=== PATIENT | female | born 1965 | race Two or more races ===

== ENCOUNTER 2024-07-12 09:21 | Emergency (ER) | payer MEDICAID, OTHER ==
[~2024-07-12] VITALS: Ht 157.5 cm; Wt 78.4 kg
[2024-07-12 11:20] LABS: Urine Bacteria FEW /hpf (None Seen); Urine Blood Negative /uL (Negative); Urine Budding Yeast OCCASIONAL /hpf (None Seen); Urine Clarity Turbid (Clear); Urine Color Yellow (Yellow); Urine Hyaline Cast MANY /lpf (0 - 2); Urine Mucus FEW (None Seen); Urine Protein, UAD TRACE (Negative); Urine Specific Gravity 1.017 (1.001-1.035); Urine Urobilinogen Normal (Negative); Urine WBC 2 /hpf (0 - 5)
[2024-07-12 12:25] VITALS: BP 144/88; PULSE 77; RESP 15; TEMP 97.7; O2SAT 97
== END 2024-07-12 12:32 | disposition home or self-care (01) ==
LOC: ER 09:25
DX: R19.7 Diarrhea, unspecified (principal); R10.84 Generalized abdominal pain; E11.9 Type 2 diabetes mellitus without complications; I10 Essential (primary) hypertension; E78.5 Hyperlipidemia, unspecified
CPT/HCPCS: 81001

== ENCOUNTER 2025-08-07 17:05 | Inpatient (IN) | payer MEDICAID ==
[~2025-08-07] VITALS: Ht 157.5 cm; Wt 71.0 kg
[2025-08-07 17:32] LABS: Hematocrit 42.8 % (36.0-46.0); Hemoglobin 14.5 g/dL (12.2-16.2); Mean Corpuscular Hemoglobin 29.5 pg (28.0-32.0); Mean Corpuscular Volume 86.9 fL (80.0-100.0); Nucleated Red Blood Cells % 0.0 %
--- NOTE | 2025-08-07 17:39 | ED.PDOC ---
GI ASSESSMENT HPI Comments This is a 59 year old female presenting to the ED with chief complaint of lower abdominal pain. Patient reports that she has been experiencing intermittent bilateral lower quadrant and suprapubic abdominal pain for the past week. Patient relays that when her pain comes on, it becomes difficult for her to walk due to the pain. Patient denies any N/V/D, fever, chills, dysuria, hematuria, or flank pain. Chief Complaint: Abdominal Pain Time Seen by MD: 17:38 Primary Care Provider: CHARISSA Cruz Notes: Nurses Notes, Medications, Allergies Allergies: Coded Allergies: NO KNOWN ALLERGIES (Unverified , 07/12/24) Information Source: Patient Mode of Arrival: Ambulatory Timing: Weeks Duration: Since onset Prehospital treatment: None Quality: Sharp Vomitus: None Stool: Normal Severity: Moderate Recent: None Recent Hx of: None Pain Location: Suprapubic Modifying Factors: Nothing Associated sign and symptoms: Abdominal Pain Past Medical History PAST MEDICAL HISTORY: DM, High Lipids, HTN Surgical History: Denies all surgeries 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 Family History Family History: Reviewed,noncontributory to illness, Unknown Social History Smoker: Non-Smoker Alcohol: Denies ETOH Use Drugs: Denies Drug Use Lives In: Home Constitutional: denies: chills, diaphoresis, fatigue, fever, malaise, sweats, weakness, others EENTM: denies: blurred vision, double vision, ear bleeding, ear discharge, ear drainage, ear pain, ear ringing, eye pain, eye redness, hearing loss, mouth pain, mouth swelling, nasal discharge, nose bleeding, nose congestion, nose pain, photophobia, tearing, throat pain, throat swelling, voice changes, others Respiratory: denies: cough, hemoptysis, orthopnea, SOB at rest, shortness of breath, SOB with excertion, stridor, wheezing, others Cardiovascular: denies: chest pain, dizzy spells, diaphoresis, Dyspnea on exertion, edema, irregular heart beat, left arm pain, lightheadedness, palpit ations, PND, syncope, others Gastrointestinal: reports: abdominal pain; denies: abdomen distended, blood streaked bowels, constipated, diarrhea, dysphagia, difficulty swallowing, hematemesis, melena, nausea, poor appetite, poor fluid intake, rectal bleeding, rectal pain, vomiting, others Genitourinary: denies: abnormal vagina bleeding, burning, dyspareunia, dysuria, flank pain, frequency, hematuria, incontinence, pain, , vagina dischar ge, urgency, others Neurological: denies: dizziness, fainting, headache, left sided numbness, left sided weakness, numbness, paresthesia, pre-existing deficit, right sided numbness, right sided weakness, seizure, speech problems, tingling, tremors, weakness, others Musculoskeletal: denies: back pain, gout, joint pain, joint swelling, muscle pain, muscle stiffness, neck pain, others Integumetry: denies: bruises, change in color, change in hair/nails, dryness, laceration, lesions, lumps, rash, wounds, others Allergic/Immunocompromised: denies: Difficulty Healing, Frequent Infections, Hives, Itching, others Hematologic/Lymphatic: denies: anemia, blood clots, easy bleeding, easy bruising, swollen glands, others Endocrine: denies: excessive hunger, excessive sweating, excessive thirst, excessive urination, flushing, intolerance to cold, intolerance to heat, unexplained weight gain, unexplained weight loss, others Psychiatric: denies: anxiety, bipolar disorder, depression, hopeless, panic disorder, schizophrenia, sleepless, suicidal, others All Other Systems: Reviewed and Negative Physical Exam General Appearance: No Apparent Distress HEENT: Other (Pupils and face symmetric. Moist mucous membranes.) Neck: Full Range of Motion, Normal Inspection Respiratory: Lungs Clear, No Accessory Muscle Use, No Respiratory Distress, Normal Breath Sounds Cardiovascular: No Edema, No JVD, Regular Rate/Rhythm Breast Exam: Deferred Gastrointestinal: LLQ, No Pulsatile Mass, RLQ, Soft, Suprapubic, Tenderness Genitalia: Deferred Pelvic: Deferred Rectal: Deferred Extremities: Normal inspection, Normal range of motion, Non-tender, No pedal edema Musculoskeletal : Apperance: Normal Neurologic: Alert (Oriented x4), Normal Affect, Normal Mood, Other (Ambulatory) Cerebellar Function: NOT DONE Reflexes: NOT DONE Skin: Dry, Normal Color, Warm Lymphatic: NOT DONE Was a procedure done? Was a procedure done?: No GI differential Dx Differential Diagnosis: Constipation, Diverticular disease, Gastroenteritis, Inflammatory BD, Ischemic Bowel, PID, UTI, Food Poisoning, Bacterial, Viral, Mass, Stress Ulcer, Kidney Stone X-Ray, Labs, Meds, VS Vital Signs Date Time Temp Pulse Resp B/P (MAP) Pulse Ox O2 Delivery O2 Flow Rate FiO2 08/07/25 18:27 68 12 137/84 08/07/25 18:19 68 16 96 Room Air 08/07/25 18:19 98.7 68 16 137/84 (101) 96 98.7 08/07/25 17:06 97.9 71 16 142/97 100 97.9 Lab Test 08/07/25 17:26 08/07/25 17:17 Range/Units White Blood Count 7.8 4.4-10.8 10^3/uL Red Blood Count 4.93 4.0-5.20 10^6/uL Hemoglobin 14.5 12.2-16.2 g/dL Hematocrit 42.8 36.0-46.0 % Mean Corpuscular Volume 86.9 80.0-100.0 fL Mean Corpuscular Hemoglobin 29.5 28.0-32.0 pg Mean Corpuscular Hemoglobin Concent 33.9 32.0-36.0 g/dL Red Cell Distribution Width 13.5 11.8-14.3 % Platelet Count 265 140-450 10^3/uL Mean Platelet Volume 8.2 6.9-10.8 fL Neutrophils (%) (Auto) 56.1 37.0-80.0 % Lymphocytes (%) (Auto) 36.1 10.0-50.0 % Monocytes (%) (Auto) 5.7 0.0-12.0 % Eosinophils (%) (Auto) 1.3 0.0-7.0 % Basophils (%) (Auto) 0.8 0.0-2.0 % Neutrophils # (Auto) 4.4 1.6-8.6 10 ^3/uL Lymphocytes # (Auto) 2.8 0.4-5.4 10 ^3/uL Monocytes # (Auto) 0.4 0-1.3 10 ^3/uL Eosinophils # (Auto) 0.1 0-0.8 10 ^3/uL Basophils # (Auto) 0.1 0-0.2 10 ^3/uL Nucleated Red Blood Cells 0.0 % Sodium Level 142 136-145 mmol/L Potassium Level 3.3 L 3.5-5.1 mmol/L Chloride Level 103 98-107 mmol/L Carbon Dioxide Level 28 20-31 mmol/L Anion Gap 11 5-15 Blood Urea Nitrogen 11 9-23 mg/dL Creatinine 0.68 0.550-1.02 mg/dL Glomerular Filtration Rate Calc 102 >90 mL/min BUN/Creatinine Ratio 16.2 10.0-20.0 Serum Glucose 100 74-106 mg/dL Calcium Level 9.3 8.7-10.4 mg/dL Total Bilirubin 0.9 0.2-1.0 mg/dL Aspartate Amino Transferase (AST) 21 13-40 U/L Alanine Aminotransferase (ALT) 16 7-40 U/L Alkaline Phosphatase 111 46-116 U/L Total Protein 8.1 5.7-8.2 g/dL Albumin 4.8 3.2-4.8 g/dL Urine Color Yellow Yellow Urine Clarity Clear Clear Urine pH 5.0 5.0-9.0 Urine Specific [place] 1.017 1.001-1.035 Urine Protein Negative Negative Urine Ketones Negative Negative Urine Blood Negative Negative /uL Urine Nitrite Negative Negative Urine Bilirubin Negative Negative Urine Urobilinogen Normal Negative mg/dL Urine Leukocyte Esterase Negative Negative /uL Urine Glucose Normal Normal mg/dL Current Medications Medications (Trade) Dose Ordered Sig/Johnnie Route Start Time Stop Time Status Last Admin Sodium Chloride 1,000 ml @ 1,000 mls/hr Q1H ONCE IV 08/07/25 17:30 08/07/25 18:29 DC 08/07/25 18:28 Ondansetron HCl (Zofran) 4 mg ONCE ONCE IV 08/07/25 17:30 08/07/25 17:31 DC 08/07/25 18:27 Morphine Sulfate 4 mg ONCE ONCE IV 08/07/25 17:30 08/07/25 17:31 DC 08/07/25 18:27 Potassium Bicarbonate (Klor-Con/Ef) 50 meq ONCE ONCE PO 08/07/25 19:00 08/07/25 19:01 DC 08/07/25 19:17 PROCEDURE(s): ABPL - CT AB PEL WO CON-NO ORAL OR IV REASON: lower abd pain ORDER NUMBER(s): [id number], ACCESSION NUMBER(s): [id number] Exam: CT CT AB PEL WO CON-NO ORAL OR IV History: lower abd pain Comparison Study: None TECHNIQUE: Multidetector CT of the abdomen was performed from lung bases to pubic symphysis. Imaging was performed without IV contrast. Axial, coronal and sagittal multiplanar reformats were obtained from the axial data set by the technologist. Radiation Dose Information: CT Dose: CTDI volume is 7.43 mGy. Dose-length product is 386.95 mGy*cm FINDINGS: Evaluation of solid organs is limited due to lack of intravenous contrast use. Findings: Lung Bases: No acute or significant lung base finding. Normal heart size. No pleural or pericardial effusion. Liver: The liver is normal in size. No focal lesions. 2.7 cm hepatic cyst Gallbladder and Biliary Tree: Unremarkable Spleen: Unremarkable Pancreas: The pancreas is grossly normal in appearance. Adrenal Glands: Unremarkable Kidneys: Kidneys are grossly normal without calculi or hydronephrosis. Bladder: Grossly unremarkable for degree of distention. Bowel: The stomach is grossly normal in appearance. Small bowel and colon are normal in caliber and distribution. No bowel obstruction although there is stool throughout the colon. Sigmoid diverticulosis with no free air or abscess. There is stranding around the sigmoid colon may represent uncomplicated diverticulitis. The appendix is not visualized; however, no secondary findings of acute appendicitis identified. Ascites: Absent Lymphadenopathy: No mesenteric, retroperitoneal or periportal lymphadenopathy. Abdominal Wall and Mesentery: Unremarkable. Vasculature: The visualized abdominal aorta is normal in size and caliber. Evaluation of abdominal and pelvic vessels is limited due to lack of intravenous contrast. Pelvic Organs: Unremarkable Musculoskeletal: No aggressive focal bony lesions, acute fractures or dislocation. Soft tissues: Unremarkable IMPRESSION: 1. Sigmoid diverticulosis with no abscess or free air. There is mild stranding in the surrounding fat which may represent uncomplicated diverticulitis. 2. Bilateral breast implants and buttocks implants. 3. Stool throughout the colon Radiation optimization: All CT scans at this facility use at least one of these dose optimization techniques: automated exposure control mA and/or kV adjustment per patient size (includes targeted exams where dose is matched to clinical indication) or iterative reconstruction. X-Ray, Labs, Meds, VS Comment 59-year-old female with a history of hypertension, diabetes and dyslipidemia complaining of lower abdominal pain for the past week Vitals remarkable for BP 142/97 Exam remarkable for lower abdominal tenderness to palpation Rhythm strip independently interpreted by me: Sinus rhythm, rate 91, no ectopy. CT abdomen and pelvis IMPRESSION: 1. Sigmoid diverticulosis with no abscess or free air. There is mild stranding in the surrounding fat which may represent uncomplicated diverticulitis. 2. Bilateral breast implants and buttocks implants. 3. Stool throughout the colon CBC, metabolic panel and UA unremarkable for any abnormality of acute significance Patient treated with the following in the ED: 1 L 0.9 normal saline IV bolus, morphine 4 mg IV, Zofran 4 mg IV, Zosyn 4.5 g IV On re-evaluation, pain has improved. Vitals were stable. Plan is to admit the patient for IV antibiotics and GI evaluation. Time of 1ST Reevaluation: 18:30 Reevaluation 1ST: Unchanged Patient Education/Counseling: Diagnosis, Treatment Family Education/Counseling: No Family Present SEPSIS Sepsis Screen Date sepsis recognized/suspect: Aug 07, 2025 Time Sepsis recognized/suspect: 1707 Recent Procedure: No On Antibiotic Therapy: No Respiratory Rate >20: No Heart Rate >90: No Temp<36 C (96.8 F) or >38.3 C: No SBP <90 or MAP <65 mmHG: No New Acute Mental Status Change: No Is the patient on CPAP, BIPAP,: No Physician Orders Ct Ab Pel Wo Con-No Oral Or Iv (08/07/25 17:18) Vital Signs Date Time Temp Pulse Resp B/P (MAP) Pulse Ox O2 Delivery O2 Flow Rate FiO2 08/07/25 18:27 68 12 137/84 08/07/25 18:19 68 16 96 Room Air 08/07/25 18:19 98.7 68 16 137/84 (101) 96 98.7 08/07/25 17:06 97.9 71 16 142/97 100 97.9 Laboratory Tests Test 08/07/25 17:26 White Blood Count 7.8 10^3/uL (4.4-10.8) Medications Medications Dose Ordered Sig/Johnnie Route Start Time Stop Time Status Last Admin Dose Admin Morphine Sulfate 4 mg ONCE ONCE IV 08/07/25 17:30 08/07/25 17:31 DC 08/07/25 18:27 Ondansetron HCl 4 mg ONCE ONCE IV 08/07/25 17:30 08/07/25 17:31 DC 08/07/25 18:27 Potassium Bicarbonate 50 meq ONCE ONCE PO 08/07/25 19:00 08/07/25 19:01 DC 08/07/25 19:17 Sodium Chloride 1,000 ml @ 1,000 mls/hr Q1H ONCE IV 08/07/25 17:30 08/07/25 18:29 DC 08/07/25 18:28 Departure 1 Departure Time of Disposition: 20:00 Impression: Primary Impression: Diverticulitis of intestine Qualified Codes: K57.92 - Diverticulitis of intestine, part unspecified, without perforation or abscess without bleeding Disposition: ADMITTED INPATIENT Admit to: Med Surg Condition: Fair Critical Care Note Critical Care Time?: No Stability Stability form required: No Heart Score Heart Score: Heart Score Response (Comments) Value History N/A 0 EKG N/A 0 Age N/A 0 Risk Factors N/A 0 Troponin N/A 0 Total 0 I personally scribed for GAVI VASQUEZ MD ([email or web address]) on 08/07/25 at 17:39. Electronically submitted by Sandro Rodney ([email or web address]). GAVI VASQUEZ MD Aug 07, 2025 17:39
[2025-08-07 17:49] LABS: Alanine Aminotransferase 16 U/L (7-40); Albumin 4.8 g/dL (3.2-4.8); Alkaline Phosphatase 111 U/L (46-116); Anion Gap 11 (5-15); BUN/Creatinine Ratio 16.2 (10.0-20.0); Bilirubin, Total 0.9 mg/dL (0.2-1.0); Blood Urea Nitrogen 11 mg/dL (9-23); Calcium 9.3 mg/dL (8.7-10.4); Carbon Dioxide 28 mmol/L (20-31); Chloride 103 mmol/L (98-107); Glucose 100 mg/dL (74-106); Sodium 142 mmol/L (136-145); Total Protein 8.1 g/dL (5.7-8.2)
[2025-08-07 17:51] LABS: Potassium 3.3 mmol/L (3.5-5.1)
[2025-08-07] MEDS: MORPHINE SULFATE 4 MG/ML SYR/VIAL IV ONE (18:27)
[2025-08-07] MEDS: ONDANSETRON HCL 4 MG/2 ML VIAL IV ONE (18:27)
[2025-08-07] MEDS: SODIUM CHLORIDE 0.9% 1,000 ML IV ONE (18:28)
[2025-08-07 18:38] LABS: Urine Protein, UAD Negative (Negative)
[2025-08-07] MEDS: POTASSIUM EFFERVESENT TAB 25 MEQ PO ONE (19:17)
--- NOTE | 2025-08-07 20:08 | DVH ---
Exam: CT CT AB PEL WO CON-NO ORAL OR IV History: lower abd pain Comparison Study: None TECHNIQUE: Multidetector CT of the abdomen was performed from lung bases to pubic symphysis. Imaging was performed without IV contrast. Axial, coronal and sagittal multiplanar reformats were obtained fr om the axial data set by the technologist. Radiation Dose Information: CT Dose: CTDI volume is 7.43 mGy. Dose-length product is 386.95 mGy*cm FINDINGS: Evaluation of solid organs is limited due to lack of intravenous contrast use. Findings: Lung Bases: No acute or significant lung base finding. Normal heart size. No pleural or pericardial effusion. Liver: The liver is normal in size. No focal lesions. 2.7 cm hepatic cyst Gallbladder and Biliary Tree: Unremarkable Spleen: Unremarkable Pancreas: The pancreas is grossly normal in appearance. Adrenal Glands: Unremarkable Kidneys: Kidneys are grossly normal without calculi or hydronephrosis. Bladder: Grossly unremarkable for degree of distention. Bowel: The stomach is grossly normal in appearance. Small bowel and colon are normal in caliber and d istribution. No bowel obstruction although there is stool throughout the colon. Sigmoid diverticulosi s with no free air or abscess. There is stranding around the sigmoid colon may represent uncomplicate d diverticulitis. The appendix is not visualized; however, no secondary findings of acute appendiciti s identified. Ascites: Absent Lymphadenopathy: No mesenteric, retroperitoneal or periportal lymphadenopathy. Abdominal Wall and Mesentery: Unremarkable. Vasculature: The visualized abdominal aorta is normal in size and caliber. Evaluation of abdominal a nd pelvic vessels is limited due to lack of intravenous contrast. Pelvic Organs: Unremarkable Musculoskeletal: No aggressive focal bony lesions, acute fractures or dislocation. Soft tissues: Unremarkable IMPRESSION: 1. Sigmoid diverticulosis with no abscess or free air. There is mild stranding in the surrounding fat which may represent uncomplicated diverticulitis. 2. Bilateral breast implants and buttocks implants. 3. Stool throughout the colon Radiation optimization: All CT scans at this facility use at least one of these dose optimization jean carlos hniques: automated exposure control mA and/or kV adjustment per patient size (includes targeted exam s where dose is matched to clinical indication) or iterative reconstruction.
[2025-08-07] MEDS: PIPERACILLIN-TAZO 4.5GM 100 ML IV ONE (20:30)
--- NOTE | 2025-08-07 22:28 | DVHHPRES ---
History of Present Illness Resident Creating Document: AIDEE ALVAREZ RESIDENT History of Present Illness Ms. Neal is a 59-year-old female with prior medical history of hypertension, diabetes and hyperlipidemia, who presents to the ED with chief complaint of abdominal pain. The patient states that for the last week she has had abdominal pain describes as sharp, in lower abdominal quadrants and suprapubic region, nonradiating, intensity 7/10, rendering her unable to move at its worst, without aggravating factors, relieved by urinating or defecating. She denies nausea, vomiting, fever, diarrhea, hematuria, and bloody bowel movements. On evaluation in the ED, vitals were within normal range, however slightly hypertensive. Initial labs show CBC within normal range, potassium 3.3, UDS negative, UA without significant findings. Abdominal CT shows sigmoid diverticulosis with no abscess or free air with mild stranding in the surrounding fat which may represent uncomplicated diverticulitis. The patient was placed on NPO, started on IV fluids, IV antibiotics, and IV pain regimen. She was admitted for further work up and monitoring. Cardiovascular: HTN, hyperipidemia Endocrine: Diabetes Past Medical History Medications: Metformin 500 mg q.day, amlodipine 10 mg q.day, hydrochlorothiazide 25 mg q.day Past Surgical History Breast augmentation, glute augmentation Smoke: No ALCOHOL: none Drugs: None Lives: with Family Domestic Violence: Neg Review of Systems Review of Systems Constitutional: Denies weight loss, fever and chills. HEENT: Denies changes in vision and hearing. Respiratory: Denies shortness of breath and cough Cardiovascular: Denies chest discomfort or palpitations GI: Refers abdominal pain, denies abdominal distention, denies diarrhea : Denies dysuria and urinary frequency. Musculoskeletal: Denies symptoms Skin: Denies rash and pruritus. Neurological: denies dizziness headache vision or hearing problems Allergies: Coded Allergies: NO KNOWN ALLERGIES (Unverified , 07/12/24) Exam Vital Signs Vital Signs Date Time Temp Pulse Resp B/P (MAP) Pulse Ox O2 Delivery O2 Flow Rate FiO2 08/07/25 20:56 97.4 66 14 137/78 (97) 98 97.4 08/07/25 18:19 Room Air Exam General: The patient alert and oriented in person place and time. Patient following commands HEENT: Normocephalic, atraumatic, normal reactive pupils, EOM intact, pink conjunctiva, pink moist mucous membrane Respiratory/pulmonary: Bilateral chest expansion, Clear lungs bilaterally, vesicular murmurs present in almost all lung [place], no associated crackles or wheezes. Cardiovascular: Regular RRR, normal S1, normal S2, no murmurs Abdomen: Abdomen nondistended, normal bowel sounds, soft, there is mild pain to palpation in LLQ and suprapubic region without rebound tenderness, no pain to CVA percussion Extremities: No deformities, there is no peripheral edema present at the lower extremities, pulses present Skin: No rashes or pruritus, there is no sacral edema present at this time. Neurological: Intact cranial nerves with no focal neurologic deficits Labs/Xrays Labs Test 08/07/25 17:26 08/07/25 17:17 Range/Units White Blood Count 7.8 4.4-10.8 10^3/uL Red Blood Count 4.93 4.0-5.20 10^6/uL Hemoglobin 14.5 12.2-16.2 g/dL Hematocrit 42.8 36.0-46.0 % Mean Corpuscular Volume 86.9 80.0-100.0 fL Mean Corpuscular Hemoglobin 29.5 28.0-32.0 pg Mean Corpuscular Hemoglobin Concent 33.9 32.0-36.0 g/dL Red Cell Distribution Width 13.5 11.8-14.3 % Platelet Count 265 140-450 10^3/uL Mean Platelet Volume 8.2 6.9-10.8 fL Neutrophils (%) (Auto) 56.1 37.0-80.0 % Lymphocytes (%) (Auto) 36.1 10.0-50.0 % Monocytes (%) (Auto) 5.7 0.0-12.0 % Eosinophils (%) (Auto) 1.3 0.0-7.0 % Basophils (%) (Auto) 0.8 0.0-2.0 % Neutrophils # (Auto) 4.4 1.6-8.6 10 ^3/uL Lymphocytes # (Auto) 2.8 0.4-5.4 10 ^3/uL Monocytes # (Auto) 0.4 0-1.3 10 ^3/uL Eosinophils # (Auto) 0.1 0-0.8 10 ^3/uL Basophils # (Auto) 0.1 0-0.2 10 ^3/uL Nucleated Red Blood Cells 0.0 % Sodium Level 142 136-145 mmol/L Potassium Level 3.3 L 3.5-5.1 mmol/L Chloride Level 103 98-107 mmol/L Carbon Dioxide Level 28 20-31 mmol/L Anion Gap 11 5-15 Blood Urea Nitrogen 11 9-23 mg/dL Creatinine 0.68 0.550-1.02 mg/dL Glomerular Filtration Rate Calc 102 >90 mL/min BUN/Creatinine Ratio 16.2 10.0-20.0 Serum Glucose 100 74-106 mg/dL Hemoglobin A1c 6.0 H <5.7 % A1C Calcium Level 9.3 8.7-10.4 mg/dL Total Bilirubin 0.9 0.2-1.0 mg/dL Aspartate Amino Transferase (AST) 21 13-40 U/L Alanine Aminotransferase (ALT) 16 7-40 U/L Alkaline Phosphatase 111 46-116 U/L Total Protein 8.1 5.7-8.2 g/dL Albumin 4.8 3.2-4.8 g/dL Thyroid Stimulating Hormone (TSH) 1.07 0.55-4.78 uIU/mL Urine Color Yellow Yellow Urine Clarity Clear Clear Urine pH 5.0 5.0-9.0 Urine Specific [place] 1.017 1.001-1.035 Urine Protein Negative Negative Urine Ketones Negative Negative Urine Blood Negative Negative /uL Urine Nitrite Negative Negative Urine Bilirubin Negative Negative Urine Urobilinogen Normal Negative mg/dL Urine Leukocyte Esterase Negative Negative /uL Urine Glucose Normal Normal mg/dL SEPSIS Sepsis Screen Date sepsis recognized/suspect: Aug 07, 2025 Time Sepsis recognized/suspect: 8 Recent Procedure: No On Antibiotic Therapy: No Respiratory Rate >20: No Heart Rate >90: No Temp<36 C (96.8 F) or >38.3 C: No SBP <90 or MAP <65 mmHG: No New Acute Mental Status Change: No Is the patient on CPAP, BIPAP,: No Physician Orders Ct Ab Pel Wo Con-No Oral Or Iv (08/07/25 17:18) Drug Screen (08/07/25 21:53) Vitamin B12 (08/07/25 21:53) Vitamin D, 25-Hydroxy (08/07/25 21:53) Lactic Acid W/ Reflex Order (08/07/25 21:53) Comprehensive Metabolic Panel (08/07/25 21:53) PTPTT (08/07/25 21:53) Lipase (08/07/25 21:53) Magnesium (08/07/25 21:53) Phosphorus (08/07/25 21:53) Admit (08/07/25 22:20) Code Status (08/07/25 22:20) Vital Signs .PER UNIT PROTOCOL (08/07/25 22:20) Review Orders With Adm. (08/07/25 22:20) Notify Md Of Changes From Base (08/07/25 22:20) Advance Directive (08/07/25 22:20) Patient Condition (08/07/25:20) Allergies (08/07/25:20) Stat Ekg For Chest Pain (08/07/25:20) Notify Md Of Changes From Base (08/07/25 22:20) Emergency Dysrhythmia Protocol (08/07/25 22:20) Rhythm Strips Once Every Shift (08/07/25 22:20) Npo (Nothing By Mouth) Diet (08/08/25 Breakfast) Zosyn Extended Infusion (08/08/25 00:00) NS (08/07/25 22:30) NS (08/07/25 22:30) Pantoprazole (Protonix) (08/07/25 22:30) Vital Signs Date Time Temp Pulse Resp B/P (MAP) Pulse Ox O2 Delivery O2 Flow Rate FiO2 08/07/25 20:56 97.4 66 14 137/78 (97) 98 97.4 08/07/25 18:27 68 12 137/84 08/07/25 18:19 68 16 96 Room Air 08/07/25 18:19 98.7 68 16 137/84 (101) 96 98.7 08/07/25 17:06 97.9 71 16 142/97 100 97.9 Laboratory Tests Test 08/07/25 17:26 White Blood Count 7.8 10^3/uL (4.4-10.8) Medications Medications Dose Ordered Sig/Johnnie Route Start Time Stop Time Status Last Admin Dose Admin Morphine Sulfate 4 mg ONCE ONCE IV 08/07/25 17:30 08/07/25 17:31 DC 08/07/25 18:27 4 MG Ondansetron HCl 4 mg ONCE ONCE IV 08/07/25 17:30 08/07/25 17:31 DC 08/07/25 18:27 4 MG Potassium Bicarbonate 50 meq ONCE ONCE PO 08/07/25 19:00 08/07/25 19:01 DC 08/07/25 19:17 50 MEQ Sodium Chloride 1,000 ml @ 1,000 mls/hr Q1H ONCE IV 08/07/25 17:30 08/07/25 18:29 DC 08/07/25 18:28 1,000 MLS/HR Assessment/Plan Assessment/Plan Assessment and Plan: Acute diverticulitis - Abdominal CT: Sigmoid diverticulosis with no abscess or free air, there is stranding in the surrounding fat which may represent uncomplicated diverticulitis - Zosyn IV q.6 hours - Morphine 4 mg IV once - Morphine 1 mg IV q.4 hours PRN - NPO - Protonix 40 mg IV daily - IV NDS bolus and maintenance NS 75 cc/hr Hypokalemia, 3.3 - Replenish Type 2 diabetes mellitus - controlled (HbA1c 6 %) - Mild SSI - Accu-Cheks - Carbohydrate Consistent Diet once NPO is lifted Hypertension - Blood pressure monitoring - Amlodipine 10 mg PO daily, once NPO is lifted - Hydrochlorothiazide 25 mg PO daily, once NPO is lifted Diet: NPO DVT prophylaxis: Not indicated, DONNA 0 GI prophylaxis: Protonix 40 mg IV daily Case discussed with Dr. Burrell Goals of care discussed with the patient and her daughter, Meli Mobley ([phone]), for 24 minutes. FULL CODE. Plan discussed with: Patient, Daughter My Orders Orders - AIDEE ALVAREZ RESIDENT Procedure Category Date Status Time Drug Screen LAB 08/07/25 In Process 21:53 Vitamin B12 LAB 08/07/25 In Process 21:53 Vitamin D, 25-Hydroxy LAB 08/07/25 In Process 21:53 Lactic Acid W/ Reflex LAB 08/07/25 Logged Order 21:53 Comprehensive LAB 08/07/25 Logged Metabolic Panel 21:53 PTPTT LAB 08/07/25 Logged 21:53 Lipase LAB 08/07/25 Logged 21:53 Magnesium LAB 08/07/25 Logged 21:53 Phosphorus LAB 08/07/25 Logged 21:53 Admit ADMIT 08/07/25 Verified 22:20 Code Status CODE 08/07/25 Verified 22:20 Vital Signs [facility] 08/07/25 Verified 22:20 Review Orders With [facility] 08/07/25 Verified Adm. 22:20 Notify Md Of Changes [facility] 08/07/25 Verified From Base 22:20 Advance Directive [facility] 08/07/25 Verified 22:20 Patient Condition ORDERS 08/07/25 Verified 22:20 Allergies [facility] 08/07/25 Verified 22:20 Stat Ekg For Chest [facility] 08/07/25 Verified Pain 22:20 Notify Md Of Changes [facility] 08/07/25 Verified From Base 22:20 Emergency Dysrhythmia [facility] 08/07/25 Verified Protocol 22:20 Rhythm Strips Once [facility] 08/07/25 Verified Every Shift 22:20 Npo (Nothing By DIET 08/08/25 Verified Mouth) Diet Breakfast Zosyn Extended PHA 08/08/25 Verified Infusion 00:00 NS PHA 08/07/25 Verified 22:30 NS PHA 08/07/25 Verified 22:30 Pantoprazole PHA 08/07/25 Verified (Protonix) 22:30 Date of Service: Aug 07, 2025 Billing Provider: CAMRYN BURRELL MD Common Visit Codes: [id number] INP/OBS CARE (HIGH) Secondary Visit Codes: [id number] CARE PLAN 30 MINUTES AIDEE ALVAREZ RESIDENT Aug 07, 2025 22:28 RETA WALSH RESIDENT Aug 08, 2025 03:16
[2025-08-07 22:29] LABS: Amphetamine Screen, Urine Neg (NEGATIVE); Barbiturate Scree,Urine Neg (NEGATIVE); Benzodiazephine Screen, Urine Neg (NEGATIVE); Cannabinoid Screen, Urine Neg (NEGATIVE); Cocaine Screen, Urine Neg (NEGATIVE); Opiate Scree,Urine Neg (NEGATIVE); Phencyclidine Screen, Urine Neg (NEGATIVE)
[2025-08-07] MEDS ORDERED: MORPHINE SULFATE INJ 2 MG/ml SYRG IV PRN (22:30)
[2025-08-07] MEDS ORDERED: DEXTROSE (50%) 50ML SYRG IV PRN (22:30)
[2025-08-07 23:07] LABS: INR 0.97 (0.9-1.15); Partial Thromboplastin Time 28.4 SEC (24.5-34.5); Prothrombin Time 10.3 sec (9.3-11.8)
[2025-08-07 23:21] LABS: Alanine Aminotransferase 16 U/L (7-40); Albumin 4.8 g/dL (3.2-4.8); Alkaline Phosphatase 110 U/L (46-116); Anion Gap 8 (5-15); BUN/Creatinine Ratio 16.4 (10.0-20.0); Blood Urea Nitrogen 10 mg/dL (9-23); Calcium 9.4 mg/dL (8.7-10.4); Carbon Dioxide 29 mmol/L (20-31); Chloride 103 mmol/L (98-107); Glucose 90 mg/dL (74-106); Lipase 44 U/L (12-53); Magnesium 2.1 mg/dL (1.6-2.6); Potassium 3.6 mmol/L (3.5-5.1); Sodium 140 mmol/L (136-145); Total Protein 8.0 g/dL (5.7-8.2)
[2025-08-07 23:22] LABS: Bilirubin, Total 0.8 mg/dL (0.2-1.0)
[2025-08-08] MEDS: SODIUM CHLORIDE 0.9% 1,000 ML IV SCH (00:46)
[2025-08-08] MEDS: ACCU-CHEK COMFORT CURVE STRIP VI SCH (01:09)
[2025-08-08] MEDS: InsuLIN REG 1unit/0.01ml Soln (100units/ml) SC SCH (01:26)
[2025-08-08] MEDS: SODIUM CHLORIDE 0.9% 1,000 ML IV ONE (01:27)
[2025-08-08] MEDS: PANTOPRAZOLE 40 MG/10 ML VIAL INJ IV ONE (01:27)
[2025-08-08 05:14] LABS: Hematocrit 40.7 % (36.0-46.0); Hemoglobin 14.0 g/dL (12.2-16.2); Mean Corpuscular Hemoglobin 30.2 pg (28.0-32.0); Mean Corpuscular Volume 87.6 fL (80.0-100.0); Nucleated Red Blood Cells % 0.1 %
[2025-08-08 05:22] LABS: Chloride 105 mmol/L (98-107); Potassium 3.8 mmol/L (3.5-5.1); Sodium 140 mmol/L (136-145)
[2025-08-08 05:23] LABS: Anion Gap 7 (5-15); Calcium 8.8 mg/dL (8.7-10.4); Carbon Dioxide 28 mmol/L (20-31)
[2025-08-08 05:28] LABS: BUN/Creatinine Ratio 15.5 (10.0-20.0)
[2025-08-08 05:34] LABS: Blood Urea Nitrogen 9 mg/dL (9-23); Glucose 106 mg/dL (74-106)
[2025-08-08 09:00] VITALS: BP 144/84; PULSE 51; RESP 19; TEMP 97.9; O2SAT 100
[2025-08-08 09:50] VITALS: BP 128/68; PULSE 78; TEMP 98.7; O2SAT 96
[2025-08-08] MEDS: PANTOPRAZOLE 40 MG/10 ML VIAL INJ IV SCH (10:27)
[2025-08-08] MEDS: PIPERACILLIN-TAZOB 3.375GM 100 ML IV SCH (10:42)
[2025-08-08 13:00] VITALS: BP 140/84; PULSE 50; RESP 13; TEMP 98; O2SAT 100
--- NOTE | 2025-08-08 13:30 | DVHPN2 ---
Reviewed: H&P Changes from previous H/P or p: No Changes General: Per HPI Objective Vitals Vital Signs Date Time Temp Pulse Resp B/P (MAP) Pulse Ox O2 Delivery O2 Flow Rate FiO2 08/08/25 09:00 97.9 51 19 144/84 (104) 100 97.9 08/07/25 18:19 Room Air Exam General: The patient alert and oriented in person place and time. Patient following commands HEENT: Normocephalic, atraumatic, normal reactive pupils, EOM intact, pink conjunctiva, pink moist mucous membrane Respiratory/pulmonary: Bilateral chest expansion, Clear lungs bilaterally, vesicular murmurs present in almost all lung [place], no associated crackles or wheezes. Cardiovascular: Regular RRR, normal S1, normal S2, no murmurs Abdomen: Abdomen nondistended, normal bowel sounds, soft, there is mild pain to palpation in LLQ and suprapubic region without rebound tenderness, no pain to CVA percussion Extremities: No deformities, there is no peripheral edema present at the lower extremities, pulses present Skin: No rashes or pruritus, there is no sacral edema present at this time. Neurological: Intact cranial nerves with no focal neurologic deficits Medications Current Medications Medications Dose Ordered Sig/Johnnie Route Start Time Stop Time Status Last Admin Dose Admin Piperacillin Sod/ Tazobactam Sod 100 ml @ 25 mls/hr Q6HR IV 08/08/25 06:00 08/08/25 10:42 25 MLS/HR Sodium Chloride 1,000 ml @ 75 mls/hr [id number] IV 08/07/25 23:30 Pantoprazole Sodium 40 mg DAILY IV 08/08/25 10:00 08/08/25 10:27 40 MG Morphine Sulfate 1 mg Q4HP PRN IV 08/07/25 22:30 Diagnostic Test (Pha) 1 strip Q6HR 08/08/25 00:00 08/08/25 12:03 1 STRIP Insulin Human Regular Q6HR SC 08/08/25 00:00 Dextrose 50 ml UD PRN IV 08/07/25 22:30 Acetaminophen/ Hydrocodone Bitart 1 tab Q6HP PRN PO 08/08/25 12:00 Laboratory Results Laboratory Tests 08/08/25 05:02 Chemistry Test 08/07/25 17:26 08/07/25 22:30 08/08/25 05:02 Albumin 4.8 g/dL (3.2-4.8) 4.8 g/dL (3.2-4.8) Calcium Level 9.3 mg/dL (8.7-10.4) 9.4 mg/dL (8.7-10.4) 8.8 mg/dL (8.7-10.4) Total Protein 8.1 g/dL (5.7-8.2) 8.0 g/dL (5.7-8.2) Magnesium Level 2.1 mg/dL (1.6-2.6) Phosphorus Level 2.8 mg/dL (2.4-5.1) Coagulation Test 08/07/25 22:30 Prothrombin Time 10.3 sec (9.3-11.8) Prothrombin Time INR 0.97 (0.9-1.15) Activated Partial Thromboplast Time 28.4 SEC (24.5-34.5) Lipid panel Test 08/07/25 22:30 Lipase 44 U/L (12-53) LFT Test 08/07/25 17:26 08/07/25 22:30 Alanine Aminotransferase (ALT) 16 U/L (7-40) 16 U/L (7-40) Alkaline Phosphatase 111 U/L (46-116) 110 U/L (46-116) Aspartate Amino Transferase (AST) 21 U/L (13-40) 19 U/L (13-40) Total Bilirubin 0.9 mg/dL (0.2-1.0) 0.8 mg/dL (0.2-1.0) HgA1c, TSH Test 08/07/25 17:26 Hemoglobin A1c 6.0 % A1C (<5.7) H Thyroid Stimulating Hormone (TSH) 1.07 uIU/mL (0.55-4.78) Urinalysis Test 08/07/25 17:17 Urine Color Yellow (Yellow) Urine Clarity Clear (Clear) Urine pH 5.0 (5.0-9.0) Urine Specific [place] 1.017 (1.001-1.035) Urine Protein Negative (Negative) Urine Ketones Negative (Negative) Urine Blood Negative /uL (Negative) Urine Nitrite Negative (Negative) Urine Bilirubin Negative (Negative) Urine Urobilinogen Normal mg/dL (Negative) Urine Leukocyte Esterase Negative /uL (Negative) Urine Glucose Normal mg/dL (Normal) Labs and/or images reviewed: Labs reviewed by me, Image(s) reviewed by me Assessment/Plan Assessment/Plan 59-year-old female with prior medical history of hypertension, diabetes and hyperlipidemia, who presents to the ED with chief complaint of abdominal pain. The patient states that for the last week she has had abdominal pain describes as sharp, in lower abdominal quadrants and suprapubic region, nonradiating, intensity 7/10, rendering her unable to move at its worst, without aggravating factors, relieved by urinating or defecating. She denies nausea, vomiting, fever, diarrhea, hematuria, and bloody bowel movements. Abdominal CT shows sigmoid diverticulosis with no abscess or free air with mild stranding in the surrounding fat which may represent uncomplicated diverticulitis. The patient was placed on NPO, started on IV fluids, IV antibiotics, and IV pain regimen. She was admitted for further work up and monitoring. 08/08: Patient is seen at bedside, abdominal pain resolving, hypoactive bowel sounds. Patient will start on clear liquid diet, continue pain control prn analgesia, prn antiemetics,. Starting IV fluids LR 50 cc an hour total of 1 L. dx: diverticulitis, acute intractable abdominal pain, due to above IVVD hypokalemia HTN DM t2 HLD plan: iv abx ivf prn analgesics prn antiemetics cont home meds npo, advance to [facility] medsurg full code Plan discussed with: Patient My Orders Orders - BESS DOMINGUEZ MD Procedure Category Date Status Time Hydrocodone-Acet PHA 08/08/25 In Process 10/325mg Tab ([place] 12:00 Lactated Ringer's PHA 08/08/25 In Process 12:00 Date of Service: Aug 08, 2025 Billing Provider: BESS DOMINGUEZ MD Common Visit Codes: [id number] INP/OBS CARE(HIGH) BESS DOMINGUEZ MD Aug 08, 2025 13:30
[2025-08-08] MEDS: LACTATED RINGER'S 1,000 ML IV ONE (15:01)
[2025-08-08 17:02] VITALS: BP 122/74; PULSE 64; RESP 13; TEMP 97.2; O2SAT 98
[2025-08-08 22:22] VITALS: BP 139/90; PULSE 60; RESP 20; TEMP 98.4; O2SAT 98
[2025-08-08 23:00] VITALS: PULSE 60; RESP 18; O2SAT 98
[2025-08-09] VITALS (7 sets, daily range): BP systolic 106–136; BP diastolic 66–88; PULSE 51–64; RESP 14–18; TEMP 97.7–98; O2SAT 96–100
[2025-08-09 06:29] LABS: Hematocrit 39.1 % (36.0-46.0); Hemoglobin 13.3 g/dL (12.2-16.2); Mean Corpuscular Hemoglobin 29.7 pg (28.0-32.0); Mean Corpuscular Volume 87.5 fL (80.0-100.0); Nucleated Red Blood Cells % 0.0 %
[2025-08-09 06:40] LABS: Alanine Aminotransferase 13 U/L (7-40); Albumin 3.8 g/dL (3.2-4.8); Alkaline Phosphatase 77 U/L (46-116); Anion Gap 11 (5-15); BUN/Creatinine Ratio 9.8 (10.0-20.0); Calcium 9.0 mg/dL (8.7-10.4); Carbon Dioxide 25 mmol/L (20-31); Glucose 92 mg/dL (74-106); Potassium 3.6 mmol/L (3.5-5.1); Sodium 143 mmol/L (136-145); Total Protein 6.4 g/dL (5.7-8.2)
[2025-08-09 06:48] LABS: Chloride 107 mmol/L (98-107)
[2025-08-09 06:49] LABS: Bilirubin, Total 1.6 mg/dL (0.2-1.0); Blood Urea Nitrogen 6 mg/dL (9-23)
[2025-08-09] MEDS: HYDROcodone-ACET 10/325MG TAB PO PRN (11:18)
--- NOTE | 2025-08-09 15:59 | DVHPN2 ---
Reviewed: H&P Changes from previous H/P or p: No Changes General: Per HPI Objective Vitals Vital Signs Date Time Temp Pulse Resp B/P (MAP) Pulse Ox O2 Delivery O2 Flow Rate FiO2 08/09/25 13:00 97.7 52 14 129/82 (98) 100 97.7 08/08/25 23:00 Room Air* 0 21 Intake/Output Intake and Output 08/09/25 07:00 Intake Total 900 ml Balance 900 ml Intake Oral 800 ml IV Total 100 ml # Voids 1 Exam General: The patient alert and oriented in person place and time. Patient following commands HEENT: Normocephalic, atraumatic, normal reactive pupils, EOM intact, pink conjunctiva, pink moist mucous membrane Respiratory/pulmonary: Bilateral chest expansion, Clear lungs bilaterally, vesicular murmurs present in almost all lung [place], no associated crackles or wheezes. Cardiovascular: Regular RRR, normal S1, normal S2, no murmurs Abdomen: Abdomen nondistended, normal bowel sounds, soft, there is mild pain to palpation in LLQ and suprapubic region without rebound tenderness, no pain to CVA percussion Extremities: No deformities, there is no peripheral edema present at the lower extremities, pulses present Skin: No rashes or pruritus, there is no sacral edema present at this time. Neurological: Intact cranial nerves with no focal neurologic deficits Medications Current Medications Medications Dose Ordered Sig/Johnnie Route Start Time Stop Time Status Last Admin Dose Admin Piperacillin Sod/ Tazobactam Sod 100 ml @ 25 mls/hr Q6HR IV 08/08/25 06:00 08/09/25 12:17 25 MLS/HR Sodium Chloride 1,000 ml @ 75 mls/hr [id number] IV 08/07/25 23:30 08/09/25 02:16 75 MLS/HR Pantoprazole Sodium 40 mg DAILY IV 08/08/25 10:00 08/09/25 11:19 40 MG Morphine Sulfate 1 mg Q4HP PRN IV 08/07/25 22:30 Diagnostic Test (Pha) 1 strip Q6HR 08/08/25 00:00 08/09/25 12:20 1 STRIP Insulin Human Regular Q6HR SC 08/08/25 00:00 Dextrose 50 ml UD PRN IV 08/07/25 22:30 Acetaminophen/ Hydrocodone Bitart 1 tab Q6HP PRN PO 08/08/25 12:00 08/09/25 11:18 1 TAB Laboratory Results Laboratory Tests 08/09/25 05:12 Chemistry Test 08/09/25 05:12 Albumin 3.8 g/dL (3.2-4.8) Calcium Level 9.0 mg/dL (8.7-10.4) Total Protein 6.4 g/dL (5.7-8.2) LFT Test 08/09/25 05:12 Alanine Aminotransferase (ALT) 13 U/L (7-40) Alkaline Phosphatase 77 U/L (46-116) Aspartate Amino Transferase (AST) 18 U/L (13-40) Total Bilirubin 1.6 mg/dL (0.2-1.0) H Urinalysis Test 08/07/25 17:17 Urine Color Yellow (Yellow) Urine Clarity Clear (Clear) Urine pH 5.0 (5.0-9.0) Urine Specific [place] 1.017 (1.001-1.035) Urine Protein Negative (Negative) Urine Ketones Negative (Negative) Urine Blood Negative /uL (Negative) Urine Nitrite Negative (Negative) Urine Bilirubin Negative (Negative) Urine Urobilinogen Normal mg/dL (Negative) Urine Leukocyte Esterase Negative /uL (Negative) Urine Glucose Normal mg/dL (Normal) Labs and/or images reviewed: Labs reviewed by me, Image(s) reviewed by me Assessment/Plan Assessment/Plan 59-year-old female with prior medical history of hypertension, diabetes and hyperlipidemia, who presents to the ED with chief complaint of abdominal pain. The patient states that for the last week she has had abdominal pain describes as sharp, in lower abdominal quadrants and suprapubic region, nonradiating, intensity 7/10, rendering her unable to move at its worst, without aggravating factors, relieved by urinating or defecating. She denies nausea, vomiting, fever, diarrhea, hematuria, and bloody bowel movements. Abdominal CT shows sigmoid diverticulosis with no abscess or free air with mild stranding in the surrounding fat which may represent uncomplicated diverticulitis. The patient was placed on NPO, started on IV fluids, IV antibiotics, and IV pain regimen. She was admitted for further work up and monitoring. 08/08: Patient is seen at bedside, abdominal pain resolving, hypoactive bowel sounds. Patient will start on clear liquid diet, continue pain control prn analgesia, prn antiemetics,. Starting IV fluids LR 50 cc an hour total of 1 L. 08/09: Patient advancing diet, still having pain. We will continue IV antibiotics, continue IV fluids keep 1 more day dx: diverticulitis, acute intractable abdominal pain, due to above IVVD hypokalemia HTN DM t2 HLD plan: iv abx ivf prn analgesics prn antiemetics cont home meds npo, advance to [facility] medsurg full code Plan discussed with: Patient My Orders Orders - BESS DOMINGUEZ MD Procedure Category Date Status Time Full Liq Diet DIET 08/09/25 Transmitted Lunch Date of Service: Aug 09, 2025 Billing Provider: BESS DOMINGUEZ MD Common Visit Codes: [id number] INP/OBS CARE(HIGH) BESS DOMINGUEZ MD Aug 09, 2025 15:59
[2025-08-10 00:38] VITALS: BP 114/71; PULSE 53; RESP 18; TEMP 98.2; O2SAT 99
[2025-08-10 04:54] VITALS: BP 110/68; PULSE 56; RESP 18; TEMP 97.9; O2SAT 97
[2025-08-10 09:00] VITALS: BP 125/77; PULSE 52; RESP 19; TEMP 98; O2SAT 98
[2025-08-10] MEDS ORDERED: HYDR-4902 PO (11:38)
[2025-08-10] MEDS ORDERED: AUG875T PO (11:38)
--- NOTE | 2025-08-10 11:39 | DVHDS2 ---
Discharge Summary Date of Admission Aug 07, 2025 at 22:20 Date of Discharge: Aug 10, 2025 Labs/Diagnostic Data: Laboratory Results Test 08/10/25 06:07 08/09/25 05:12 08/07/25 22:30 08/07/25 17:26 POC Glucose 114 mg/dl (70-106) White Blood Count 5.9 10^3/uL (4.4-10.8) Red Blood Count 4.48 10^6/uL (4.0-5.20) Hemoglobin 13.3 g/dL (12.2-16.2) Hematocrit 39.1 % (36.0-46.0) Mean Corpuscular Volume 87.5 fL (80.0-100.0) Mean Corpuscular Hemoglobin 29.7 pg (28.0-32.0) Mean Corpuscular Hemoglobin Concent 34.0 g/dL (32.0-36.0) Red Cell Distribution Width 13.4 % (11.8-14.3) Platelet Count 220 10^3/uL (140-450) Mean Platelet Volume 8.5 fL (6.9-10.8) Neutrophils (%) (Auto) 48.7 % (37.0-80.0) Lymphocytes (%) (Auto) 41.0 % (10.0-50.0) Monocytes (%) (Auto) 7.8 % (0.0-12.0) Eosinophils (%) (Auto) 1.6 % (0.0-7.0) Basophils (%) (Auto) 0.9 % (0.0-2.0) Neutrophils # (Auto) 2.9 10 ^3/uL (1.6-8.6) Lymphocytes # (Auto) 2.4 10 ^3/uL (0.4-5.4) Monocytes # (Auto) 0.5 10 ^3/uL (0-1.3) Eosinophils # (Auto) 0.1 10 ^3/uL (0-0.8) Basophils # (Auto) 0.1 10 ^3/uL (0-0.2) Nucleated Red Blood Cells 0.0 % Sodium Level 143 mmol/L (136-145) Potassium Level 3.6 mmol/L (3.5-5.1) Chloride Level 107 mmol/L (98-107) Carbon Dioxide Level 25 mmol/L (20-31) Anion Gap 11 (5-15) Blood Urea Nitrogen 6 mg/dL (9-23) Creatinine 0.61 mg/dL (0.550-1.02) Glomerular Filtration Rate Calc 104 mL/min (>90) BUN/Creatinine Ratio 9.8 (10.0-20.0) Serum Glucose 92 mg/dL (74-106) Calcium Level 9.0 mg/dL (8.7-10.4) Total Bilirubin 1.6 mg/dL (0.2-1.0) Aspartate Amino Transferase (AST) 18 U/L (13-40) Alanine Aminotransferase (ALT) 13 U/L (7-40) Alkaline Phosphatase 77 U/L (46-116) Total Protein 6.4 g/dL (5.7-8.2) Albumin 3.8 g/dL (3.2-4.8) Prothrombin Time 10.3 sec (9.3-11.8) Prothrombin Time INR 0.97 (0.9-1.15) Activated Partial Thromboplast Time 28.4 SEC (24.5-34.5) Lactic Acid Level 1.0 mmol/L (0.4-2.0) Phosphorus Level 2.8 mg/dL (2.4-5.1) Magnesium Level 2.1 mg/dL (1.6-2.6) Lipase 44 U/L (12-53) Hemoglobin A1c 6.0 % A1C (<5.7) Vitamin B12 Level 2192 pg/mL (211-911) Vitamin D 25-Hydroxy 33.2 ng/mL (30.0-100) Thyroid Stimulating Hormone (TSH) 1.07 uIU/mL (0.55-4.78) Test 08/07/25 17:17 Urine Color Yellow (Yellow) Urine Clarity Clear (Clear) Urine pH 5.0 (5.0-9.0) Urine Specific [place] 1.017 (1.001-1.035) Urine Protein Negative (Negative) Urine Ketones Negative (Negative) Urine Blood Negative /uL (Negative) Urine Nitrite Negative (Negative) Urine Bilirubin Negative (Negative) Urine Urobilinogen Normal mg/dL (Negative) Urine Leukocyte Esterase Negative /uL (Negative) Urine Glucose Normal mg/dL (Normal) Urine Opiates Screen Neg (NEGATIVE) Urine Fentanyl Screen Neg (NEGATIVE) Urine Barbiturates Screen Neg (NEGATIVE) Urine Phencyclidine Screen Neg (NEGATIVE) Urine Amphetamines Screen Neg (NEGATIVE) Urine Benzodiazepines Screen Neg (NEGATIVE) Urine Cocaine Screen Neg (NEGATIVE) Urine Cannabinoids Screen Neg (NEGATIVE) Other Laboratory Tests 08/09/25 05:12 Brief Hx & Hospital Course: 59-year-old female with prior medical history of hypertension, diabetes and hyperlipidemia, who presents to the ED with chief complaint of abdominal pain. The patient states that for the last week she has had abdominal pain describes as sharp, in lower abdominal quadrants and suprapubic region, nonradiating, intensity 7/10, rendering her unable to move at its worst, without aggravating factors, relieved by urinating or defecating. She denies nausea, vomiting, fever, diarrhea, hematuria, and bloody bowel movements. Abdominal CT shows sigmoid diverticulosis with no abscess or free air with mild stranding in the surrounding fat which may represent uncomplicated diverticulitis. The patient was placed on NPO, started on IV fluids, IV antibiotics, and IV pain regimen. She was admitted for further work up and monitoring. 08/08: Patient is seen at bedside, abdominal pain resolving, hypoactive bowel sounds. Patient will start on clear liquid diet, continue pain control prn analgesia, prn antiemetics,. Starting IV fluids LR 50 cc an hour total of 1 L. 08/09: Patient advancing diet, still having pain. We will continue IV antibiotics, continue IV fluids keep 1 more day dx: diverticulitis, acute intractable abdominal pain, due to above IVVD hypokalemia HTN DM t2 HLD plan: -Take Augmentin 875 twice daily for 4 days, -Take hold [place] yogurt, tbsp full, twice daily for 14 days -For 1st line pain take Tylenol, 4 second-line pain take ibuprofen, 4 3rd line pain take prescription [place] 5 mg up to 3 times daily as needed -Take full liquid diet for 5 days and advance to diabetic diet slowly thereafter, - continue other home medications -Follow up with PCP to review discharge Condition at Discharge: Fair Final Diagnosis/Problems List diverticulitis, acute intractable abdominal pain, due to above IVVD hypokalemia HTN DM t2 HLD Discharge Disposition: Home Discharge Statement: "Patient was advised to return to the ER or call 911 if any headaches, dizziness, shortness of breath, chest pain, abdominal pain, bleeding, fevers, or worsening of medical condition. Patient was counseled about treatment plan, medications, possible side effects, patientverbalized understanding. All questions were answered to the best of my ability. This discharge took greater then 30 minutes in planning, reviewing documentation, counseling the patient, and discussing with other team members." ASSESSMENT ASSESSMENT Assessment Date of Service: Aug 10, 2025 Billing Provider: BESS DOMINGUEZ MD Common Visit Codes: 44720-SSE/OBS DISCH DAY >30min BESS DOMINGUEZ MD Aug 10, 2025 11:39
[2025-08-10 12:33] VITALS: BP 152/99; PULSE 65; RESP 19; TEMP 98.8; O2SAT 100
== END 2025-08-10 14:57 | disposition home or self-care (01) | DRG 244 ==
LOC: ER 17:05 → OVERFLOW 22:20 → WEST WING 08-08 22:22
PROVIDERS: ADMIT Student in an Organized Health Care Education/Training Program; ATTEND Student in an Organized Health Care Education/Training Program
DX: K57.32 Diverticulitis of large intestine without perforation or abscess without bleeding (principal); E11.9 Type 2 diabetes mellitus without complications; E87.6 Hypokalemia; E78.5 Hyperlipidemia, unspecified; I10 Essential (primary) hypertension; Z41.1 Encounter for cosmetic surgery
CPT/HCPCS: 36415; 74176; 80048; 80053; 80307; 81003; 82306; 82607; 82962; 83036; 83605; 83690; 83735; 84100; 84443; 85025; 85610; 85730; 96361; 96374; 96375; G0378; J2405; J2470; J2543

== ENCOUNTER 2025-11-07 08:09 | Emergency (ER) | payer MEDICAID ==
[~2025-11-07] VITALS: Ht 157.5 cm; Wt 69.3 kg
[~2025-11-07 08:09] MED LIST: AUG875T PO; HYDR-4902 PO
--- NOTE | 2025-11-07 10:14 | ED.PDOC ---
Musculoskeletal HPI Comments A 60 year old female with past medical history of DM, HLD, HTN presents to the ED with a chief of RT knee pain s/p fall onset 2 days. Patient states she was walking backwards playing with granddaughter, fell sitting down with RT knee bent backwards, states all weight landed on knee. Since then has been experiencing RT knee pain worsens with ambulation and knee movement. Currently rates pain 6/, took Ibuprofen 500 mg last night. No other symptoms or modifying factors present at this time. Denies skin color changes around the knee Denies masses around the knee Denies popping/locking/giving out of the knee Denies fever chills night sweats nausea vomiting Denies previous surgeries to the knee nor significant injury Chief Complaint: Lower Extremity Time Seen by MD: 10:00 Primary Care Provider: CHARISSA Cruz Notes: Medications, Allergies Allergies: Coded Allergies: NO KNOWN ALLERGIES (Unverified , 07/12/24) Home Meds Active Scripts Hydrocodone-Acetaminophen (Hydrocodone Bitartrate/AC 5-325 mg) 1 Tab Tab, 1 TAB PO TIDP PRN for 7 Days, #21 TAB 0 Refills Prov:BESS DOMINGUEZ MD 08/10/25 Amoxicillin & Pot Clavulanate (AUGMENTIN TABLET) 875 Mg Tb, 875 MG PO BID for 5 Days, #10 TAB Prov:BESS DOMINGUEZ MD 08/10/25 Information Source: Patient Mode of Arrival: Ambulatory Location: Right Extremity Location: Knee Timing: Days Prehospital treatment: Pain Meds (Ibuprofen 500 mg) Severity: Moderate Able to Move Extremity: Yes Bear Weight: Limited Pain: Moderate Mechanism: Spontaneous Circumstances: Fall Onset of Symptoms: After Trauma Symptoms: Swelling, Pain DVT Risk Factors: NONE Last Tetanus: UTD Associated signs and symptoms: Knee pain Past Medical History PAST MEDICAL HISTORY: DM, High Lipids, HTN Surgical History: Denies all surgeries 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: 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 all CHAR 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 Hx Family History Family History: Reviewed,noncontributory to illness, Unknown Social History Smoker: Non-Smoker Alcohol: Denies ETOH Use Drugs: Denies Drug Use Lives In: Home All Other Systems: Reviewed and Negative (as per HPI) Physical Exam General Appearance: Normal HEENT: Normal ENT Inspection, Pharynx Normal, TMs Normal Neck: Full Range of Motion, Non-Tender, Normal, Normal Inspection Respiratory: Chest Non-Tender, Lungs Clear, No Accessory Muscle Use, No Respiratory Distress, Normal Breath Sounds Cardiovascular: No Edema, No JVD, No Murmur, No Gallop, Normal Peripheral Pulses, Regular Rate/Rhythm Breast Exam: Deferred Gastrointestinal: No Organomegaly, Non Tender, No Pulsatile Mass, Normal Bowel Sounds, Soft Genitalia: Deferred Pelvic: Deferred Rectal: Deferred Extremities: Other Musculoskeletal : Location: Right Extremity Location: Knee (swelling to RT knee with no contusion. 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 Was a procedure done?: No Differential Diagnosis EXT Differential Diagnosis: Other X-Ray, Labs, Meds, VS Vital Signs Date Time Temp Pulse Resp B/P (MAP) Pulse Ox O2 Delivery O2 Flow Rate FiO2 11/07/25 10:30 97.4 72 17 143/98 (113) 98 97.4 11/07/25 08:21 97.6 80 16 139/90 97 97.6 Current Medications Medications (Trade) Dose Ordered Sig/Johnnie Route Start Time Stop Time Status Last Admin Ketorolac Tromethamine (Toradol Injection) 60 mg ONCE ONCE IM 11/07/25 10:15 11/07/25 10:28 DC 11/07/25 10:21 [place] [id number] Ph: [phone] DIAGNOSTIC IMAGING Diagnostic Imaging Report : [id number] Signed PATIENT: DEBI GREENECCT: [id number] UNIT: [id number] : 1965 LOC: ER ROOM / BED: / AGE / SEX: 60 / F ADM STATUS: REG ER SERVICE 1002 ORDERING PHYSICIAN: CLEMENTINE CUETO NP PROCEDURE(s): RKN3 - R KNEE 3V XRAY REASON: r/o fracture s/p fall ORDER NUMBER(s): [id number], ACCESSION NUMBER(s): [id number] CLINICAL INDICATION: r/o fracture s/p fall TECHNIQUE: XY R KNEE 3V XRAY COMPARISON: None FINDINGS/IMPRESSION: : There is no evidence of acute fracture or dislocation. Moderate joint effusion. ATED BY: DIEGO GROSS MD DICTATED DATE/TIME: 11/07/25 105 SIGNED BY: DIEGO GROSS MD SIGNED DATE/TIME: 11/07/25 105 CC: X-Ray, Labs, Meds, VS Comment A 60 year old female with past medical history of DM, HLD, HTN presents to the ED with a chief of RT knee pain s/p fall onset 2 days. Patient arrives alert and oriented, ABC's intact, afebrile, vital signs stable, saturating well in room air Diagnostic imaging ordered by me and results interpreted by radiology : XY R knee 3 view IMPRESSION: : There is no evidence of acute fracture or dislocation. Moderate joint effusion. Patient was given: Ketorolac 60 mg IM. Tolerated medications with no adverse reaction. Recommend light walking under the sun for 30 minutes a day Avoiding running jogging high-impact activities Stretch as tolerated Ice 3x/day for 5 minutes Wear knee brace for stability as needed, elevate leg swelling aggravated All diagnostic findings, discharge care, education and instructions provided Follow-up with PCP in 2 to 3 days Patient verbalized understanding and agreed to treatment plan Vital signs stable, afebrile, no acute distress noted Patient ambulatory with strong steady gait Advised to return precautions for any new or worsening symptoms, return to ER immediately for re-evaluation Patient is aware that the purpose of this visit was for an acute medical emergency requiring emergent stabilization. Chronic conditions, including malignancies have not been ruled out. Patient is instructed to follow up with PCP as directed and discharge instructions for continued care and workup. If unable to arrange follow-up, patient is to return to the emergency department for reassessment. Patient (parent or legal guardian if applicable) was given verbal and written discharge instructions and acknowledges understanding. Additional MDM Review of External, Non-ED records: External records reviewed. Discussion with independent historian (EMS, family) history obtained from the patient/parents (if applicable) at bedside Chronic conditions affecting care: DM, HTN, HLD Social determinants of health affecting care: None Consideration of admission (observation or admission): I considered escalation of care to admission for this patient, however given the reassuring workup, the patient is safe for outpatient management. Time of 1ST Reevaluation: 10:30 Reevaluation 1ST: Improved Patient Education/Counseling: Diagnosis, Treatment Family Education/Counseling: No Family Present Departure 1 Departure Time of Disposition: 11:06 Impression: Primary Impression: Knee pain Qualified Codes: M25.561 - Pain in right knee Disposition: 01 HOME / SELF CARE / HOMELESS Condition: Stable Discharged With: Self Critical Care Note Critical Care Time?: No Stability Stability form required: No Heart Score Heart Score: Heart Score Response (Comments) Value History N/A 0 EKG N/A 0 Age N/A 0 Risk Factors N/A 0 Troponin N/A 0 Total 0 I personally scribed for CLEMENTINE CUETO DOCUMENT CONTROLLER ([email or web address]) on 11/07/25 at 10:14. Electronically submitted by Marli Sanders ([email or web address]). I personally scribed for CLEMENTINE CUETO DOCUMENT CONTROLLER ([email or web address]) on 11/07/25 at 11:19. Electronically submitted by Marli Sanders ([email or web address]). CLEMENTINE CUETO NP Nov 07, 2025 10:14
[2025-11-07] MEDS: KETOROLAC TROMETH 60MG/2ML VIAL IM ONE (10:21)
[2025-11-07 10:30] VITALS: BP 143/98; PULSE 72; RESP 17; TEMP 97.4; O2SAT 98
--- NOTE | 2025-11-07 11:01 | DVH ---
CLINICAL INDICATION: r/o fracture s/p fall TECHNIQUE: XY R KNEE 3V XRAY COMPARISON: None FINDINGS/IMPRESSION: : There is no evidence of acute fracture or dislocation. Moderate joint effusion.
== END 2025-11-07 11:33 | disposition home or self-care (01) ==
LOC: ER 08:09
DX: M25.561 Pain in right knee (principal); E78.5 Hyperlipidemia, unspecified; E11.9 Type 2 diabetes mellitus without complications; I10 Essential (primary) hypertension; Z79.899 Other long term (current) drug therapy; W19.XXXA Unspecified fall, initial encounter; Y93.89 Activity, other specified; Y92.89 Other specified places as the place of occurrence of the external cause; Y99.8 Other external cause status
CPT/HCPCS: 73562; 96372; 99283; J1885